=== PATIENT | male | born 1985 | race Caucasian/White ===

== ENCOUNTER 2017-10-13 18:27 | Inpatient (IN) | payer OTHER ==
[2017-10-13] MEDS: DEXTROSE 5%-0.45% NACL 1,000 ML IV (20:05)
[2017-10-13] MEDS: morphine 2 MG INJ IV (20:10)
[2017-10-13] MEDS: CEFTRIAXONE 1 GM/50 ML (PMX) 50 ML IVPB (21:34)
[2017-10-14] MEDS: DEXTROSE 5%-0.45% NACL 1,000 ML IV ×3 (04:54→19:12)
[2017-10-14] MEDS ORDERED: NACL 0.9% 3 ML SYG IV (05:00)
[2017-10-14] MEDS ORDERED: ACETAMINOPHEN 325 MG TAB PO (05:00)
[2017-10-14] MEDS ORDERED: ONDANSETRON 4 MG INJ IV (05:00)
[2017-10-14] MEDS ORDERED: DOCUSATE SODIUM 100 MG CAP PO (05:00)
[2017-10-14] MEDS: PANTOPRAZOLE 40 MG INJ IV ×2 (05:24)
[2017-10-14] MEDS: morphine 2 MG INJ IV ×3 (10:07→21:10)
[2017-10-14 11:41] LABS: ADD MAN DIFF? NO
[2017-10-14 11:44] LABS: BASOPHIL # 0.1 10^3/ul (0.0-0.1); BASOPHILS % 0.4 % (0.0-2.0); EOSINOPHILS # 0.3 10^3/ul (0.0-0.5); EOSINOPHILS % 2.6 % (0.0-7.0); HEMATOCRIT 43.1 % (42.0-52.0); HEMOGLOBIN 14.1 g/dl (14.0-18.0); LYMPHOCYTES # 1.5 10^3/ul (0.8-2.9); MEAN CORPUSCULAR HEMOGLOBIN 29.1 pg (29.0-33.0); MEAN CORPUSCULAR HGB CONC 32.7 g/dl (32.0-37.0); MEAN CORPUSCULAR VOLUME 88.9 fl (82.0-101.0); MEAN PLATELET VOLUME 10.4 fl (7.4-10.4); MONOCYTES % 7.8 % (0.0-11.0); NEUTROPHIL # 9.6 10^3/ul (1.6-7.5); NEUTROPHILS % 76.9 % (39.0-77.0); PLATELET COUNT 330 10^3/UL (140-415); RED BLOOD COUNT 4.85 10^6/ul (4.70-6.10); RED CELL DISTRIBUTION WIDTH 12.9 % (11.5-14.5)
[2017-10-14 11:44] LABS: WHITE BLOOD COUNT 12.5 10^3/ul (4.8-10.8)
[2017-10-14 12:10] LABS: ALANINE AMINOTRANSFERASE 55 IU/L (13-69); ALBUMIN 3.7 g/dl (3.3-4.9); ALBUMIN/GLOBULIN RATIO 1.15; ALKALINE PHOSPHATASE 90 IU/L (42-121); ANION GAP 10 (8-16); ASPARTATE AMINO TRANSFERASE 28 IU/L (15-46); BILIRUBIN,INDIRECT 1.2 mg/dl (0-1.1); BILIRUBIN,TOTAL 1.2 mg/dl (0.2-1.3); BLOOD UREA NITROGEN 8 mg/dl (7-20); CALCIUM 8.4 mg/dl (8.4-10.2); CARBON DIOXIDE 27 mmol/L (21-31); CHLORIDE 108 mmol/L (97-110); CREATININE 0.85 mg/dl (0.61-1.24); GLUCOSE 119 mg/dl (70-220); POTASSIUM 3.6 mmol/L (3.5-5.1); SODIUM 141 mmol/L (135-144); TOTAL PROTEIN 6.9 g/dl (6.1-8.1)
[2017-10-14 12:19] LABS: PROTIME 13.3 Sec (11.9-14.9)
[2017-10-14] MEDS: metroNIDAZOLE 500 MG/NS (PMX) 100 ML IVPB ×2 (15:04→22:17)
[2017-10-14] MEDS: CEFTRIAXONE 1 GM/50 ML (PMX) 50 ML IVPB (20:12)
[2017-10-15] MEDS: DEXTROSE 5%-0.45% NACL 1,000 ML IV ×5 (02:07→23:48)
[2017-10-15] MEDS: PANTOPRAZOLE 40 MG INJ IV (05:23)
[2017-10-15] MEDS: metroNIDAZOLE 500 MG/NS (PMX) 100 ML IVPB ×3 (05:23→22:24)
[2017-10-15] MEDS ORDERED: SUCCINYLCHOLINE CHLORIDE 100 MG/5 ML SYG IV (07:00)
[2017-10-15] MEDS ORDERED: CEFAZOLIN 1 GM INJ (07:00)
[2017-10-15] MEDS: morphine 2 MG INJ IV ×3 (07:15→19:10)
[2017-10-15] MEDS ORDERED: PROPOFOL 20 ML (14:51)
[2017-10-15] MEDS ORDERED: ROCURONIUM 50 MG INJ (14:51)
[2017-10-15] MEDS ORDERED: LIDOCAINE 1% (MDV) 20 ML INJ (14:51)
[2017-10-15] MEDS ORDERED: MIDAZOLAM 1 MG/ML 2 ML INJ (14:51)
[2017-10-15] MEDS ORDERED: ROPIVACAINE 0.2% 20 ML VIAL (14:56)
[2017-10-15] MEDS ORDERED: LIDOCAINE 1%/EPI 30 ML INJ (15:02)
[2017-10-15] MEDS ORDERED: BUPIVACAINE 0.25% (MPF) 30 ML INJ (15:02)
[2017-10-15] MEDS ORDERED: FAMOTIDINE 20 MG INJ (16:24)
[2017-10-15] MEDS ORDERED: ONDANSETRON 4 MG INJ (16:24)
[2017-10-15] MEDS ORDERED: ACETAMINOPHEN 1000MG/100ML IV 100 ML (16:24)
[2017-10-15] MEDS ORDERED: DEXAMETHASONE 4 MG/ML 1 ML INJ (16:24)
[2017-10-15] MEDS ORDERED: SUGAMMADEX SODIUM 200 MG/2 ML VIAL IV ×2 (17:00→17:02)
[2017-10-15] MEDS ORDERED: HYDROmorphONE 1 MG/5 ML IV SYRINGE IV ×2 (17:14→17:30)
[2017-10-15 17:36] LABS: ADD MAN DIFF? NO
[2017-10-15 17:41] LABS: BASOPHIL # 0.1 10^3/ul (0.0-0.1); BASOPHILS % 0.4 % (0.0-2.0); EOSINOPHILS # 0.2 10^3/ul (0.0-0.5); EOSINOPHILS % 1.4 % (0.0-7.0); HEMATOCRIT 45.6 % (42.0-52.0); HEMOGLOBIN 14.6 g/dl (14.0-18.0); LYMPHOCYTES # 1.4 10^3/ul (0.8-2.9); LYMPHOCYTES % 8.9 % (15.0-51.0); MEAN CORPUSCULAR HEMOGLOBIN 29.2 pg (29.0-33.0); MEAN CORPUSCULAR VOLUME 91.2 fl (82.0-101.0); MONOCYTE # 0.5 10^3/ul (0.3-0.9); NEUTROPHIL # 13.7 10^3/ul (1.6-7.5); NEUTROPHILS % 85.5 % (39.0-77.0); PLATELET COUNT 333 10^3/UL (140-415); RED CELL DISTRIBUTION WIDTH 12.9 % (11.5-14.5)
[2017-10-15] MEDS ORDERED: FENTAnyl 50 MCG/ML VIAL IV (18:00)
[2017-10-15] MEDS ORDERED: FENTAnyl 50 MCG/ML VIAL (18:04)
[2017-10-15] MEDS: HYDROmorphONE 1 MG/5 ML IV SYRINGE IV (18:06)
[2017-10-15] MEDS: HYDROCODONE/APAP (5/325) TAB PO ×3 (18:28→22:26)
[2017-10-15] MEDS: CEFTRIAXONE 1 GM/50 ML (PMX) 50 ML IVPB (20:25)
[2017-10-16] MEDS: HYDROCODONE/APAP (5/325) TAB PO ×2 (04:41→12:23)
[2017-10-16] MEDS: DEXTROSE 5%-0.45% NACL 1,000 ML IV ×3 (05:12→16:46)
[2017-10-16] MEDS: metroNIDAZOLE 500 MG/NS (PMX) 100 ML IVPB ×3 (05:15→22:42)
[2017-10-16] MEDS: PANTOPRAZOLE 40 MG INJ IV (05:15)
[2017-10-16 05:17] LABS: ADD MAN DIFF? NO
[2017-10-16 05:26] LABS: BASOPHILS % 0.2 % (0.0-2.0); HEMATOCRIT 41.2 % (42.0-52.0); HEMOGLOBIN 13.9 g/dl (14.0-18.0); LYMPHOCYTES # 0.9 10^3/ul (0.8-2.9); LYMPHOCYTES % 6.9 % (15.0-51.0); MEAN CORPUSCULAR HEMOGLOBIN 29.8 pg (29.0-33.0); MEAN CORPUSCULAR HGB CONC 33.7 g/dl (32.0-37.0); MEAN CORPUSCULAR VOLUME 88.4 fl (82.0-101.0); MEAN PLATELET VOLUME 10.5 fl (7.4-10.4); MONOCYTE # 0.6 10^3/ul (0.3-0.9); MONOCYTES % 4.2 % (0.0-11.0); NEUTROPHIL # 11.7 10^3/ul (1.6-7.5); NEUTROPHILS % 88.3 % (39.0-77.0); PLATELET COUNT 340 10^3/UL (140-415); RED BLOOD COUNT 4.66 10^6/ul (4.70-6.10); RED CELL DISTRIBUTION WIDTH 12.8 % (11.5-14.5)
[2017-10-16 05:26] LABS: WHITE BLOOD COUNT 13.3 10^3/ul (4.8-10.8)
[2017-10-16 05:55] LABS: ANION GAP 12 (8-16); BLOOD UREA NITROGEN 12 mg/dl (7-20); CALCIUM 8.9 mg/dl (8.4-10.2); CARBON DIOXIDE 27 mmol/L (21-31); CHLORIDE 106 mmol/L (97-110); CREATININE 0.83 mg/dl (0.61-1.24); GLUCOSE 133 mg/dl (70-220); POTASSIUM 4.5 mmol/L (3.5-5.1); SODIUM 140 mmol/L (135-144)
[2017-10-16] MEDS: morphine 2 MG INJ IV (08:30)
[2017-10-16] MEDS ORDERED: morphine LIQ (10 MG/5 ML) CUP PO (14:00)
[2017-10-16] MEDS ORDERED: morphine 2 MG INJ IV (16:00)
[2017-10-16] MEDS: HYDROmorphONE 0.5 MG/0.5 ML SYG IV ×2 (16:47→20:48)
[2017-10-16] MEDS: CEFTRIAXONE 1 GM/50 ML (PMX) 50 ML IVPB (20:14)
[2017-10-17] MEDS: HYDROmorphONE 0.5 MG/0.5 ML SYG IV (02:07)
[2017-10-17] MEDS: PANTOPRAZOLE (EC) 40 MG TAB PO (05:48)
[2017-10-17] MEDS: metroNIDAZOLE 500 MG/NS (PMX) 100 ML IVPB ×2 (05:48→16:02)
[2017-10-17] MEDS: HYDROCODONE/APAP (5/325) TAB PO ×3 (05:50→16:02)
[2017-10-17] MEDS ORDERED: HYDROmorphONE 2 MG TAB PO (13:30)
[2017-10-17 18:38] LABS: ADD MAN DIFF? NO
[2017-10-17 18:41] LABS: BASOPHIL # 0.1 10^3/ul (0.0-0.1); BASOPHILS % 0.6 % (0.0-2.0); EOSINOPHILS # 0.4 10^3/ul (0.0-0.5); EOSINOPHILS % 3.6 % (0.0-7.0); HEMATOCRIT 44.8 % (42.0-52.0); HEMOGLOBIN 14.8 g/dl (14.0-18.0); LYMPHOCYTES # 2.2 10^3/ul (0.8-2.9); LYMPHOCYTES % 22.1 % (15.0-51.0); MEAN CORPUSCULAR HEMOGLOBIN 29.5 pg (29.0-33.0); MEAN CORPUSCULAR VOLUME 89.2 fl (82.0-101.0); MEAN PLATELET VOLUME 10.3 fl (7.4-10.4); MONOCYTE # 0.6 10^3/ul (0.3-0.9); MONOCYTES % 6.6 % (0.0-11.0); NEUTROPHIL # 6.5 10^3/ul (1.6-7.5); NEUTROPHILS % 66.7 % (39.0-77.0); PLATELET COUNT 390 10^3/UL (140-415); RED BLOOD COUNT 5.02 10^6/ul (4.70-6.10); RED CELL DISTRIBUTION WIDTH 12.9 % (11.5-14.5)
[2017-10-17 18:41] LABS: WHITE BLOOD COUNT 9.7 10^3/ul (4.8-10.8)
== END 2017-10-17 18:10 | disposition home or self-care (01) | DRG 418 ==
LOC: MS1 10-14 11:36
PROC: 0FT44ZZ Resection of Gallbladder, Percutaneous Endoscopic Approach (ICD-10-PCS; principal; 2017-10-15 12:00)
DX: K80.00 Calculus of gallbladder with acute cholecystitis without obstruction (principal); Z68.41 Body mass index [BMI] 40.0-44.9, adult; E66.01 Morbid (severe) obesity due to excess calories; D72.829 Elevated white blood cell count, unspecified
CPT/HCPCS: 71045; 80048; 80053; 85025; 85610; 88304; 93005